=== PATIENT | male | born 1960 | race African-American/Black ===

== ENCOUNTER 2018-07-31 06:58 | Emergency (ER) | payer OTHER ==
[~2018-07-31] VITALS: Ht 170.2 cm; Wt 68.0 kg
[~2018-07-31 06:58] MED LIST: IBUPROFEN 600600 M1 PO
[2018-07-31 06:59] VITALS: BP 141/77
== END 2018-07-31 07:34 | disposition home or self-care (01) ==
LOC: ER 06:58
DX: J06.9 Acute upper respiratory infection, unspecified (principal); Z02.79 Encounter for issue of other medical certificate

== ENCOUNTER 2019-05-31 09:45 | Emergency (ER) | payer OTHER ==
[~2019-05-31] VITALS: Ht 170.2 cm; Wt 73.5 kg
[2019-05-31] MEDS ORDERED: ROBAXIN 750 MG750 MG PO (11:15)
[2019-05-31] MEDS ORDERED: NAPROSYN500 MG PO (11:15)
[2019-05-31 11:33] VITALS: BP 132/84
== END 2019-05-31 11:34 | disposition home or self-care (01) ==
LOC: ER 09:45
DX: S16.1XXA Strain of muscle, fascia and tendon at neck level, initial encounter (principal); S09.8XXA Other specified injuries of head, initial encounter; M54.5 Low back pain; F17.290 Nicotine dependence, other tobacco product, uncomplicated; V49.49XA Driver injured in collision with other motor vehicles in traffic accident, initial encounter; Y92.89 Other specified places as the place of occurrence of the external cause; Y93.89 Activity, other specified; Y99.8 Other external cause status

== ENCOUNTER 2019-06-14 16:27 | Emergency (ER) | payer OTHER ==
[~2019-06-14] VITALS: Ht 170.2 cm; Wt 72.6 kg
[~2019-06-14 16:27] MED LIST changes: +NAPROSYN500 MG PO; +ROBAXIN 750 MG750 MG PO
[2019-06-14] MEDS ORDERED: ZANAFLEX4 MG PO ×2 (17:30→17:32)
[2019-06-14] MEDS ORDERED: ULTRAM 50MG TAB50 MG PO (17:34)
[2019-06-14 17:40] VITALS: BP 176/95
== END 2019-06-14 17:47 | disposition home or self-care (01) ==
LOC: ER 16:27
DX: S16.1XXA Strain of muscle, fascia and tendon at neck level, initial encounter (principal); M54.5 Low back pain; V89.2XXA Person injured in unspecified motor-vehicle accident, traffic, initial encounter; Y92.89 Other specified places as the place of occurrence of the external cause; Y93.89 Activity, other specified; Y99.8 Other external cause status

== ENCOUNTER 2019-10-12 12:22 | Emergency (ER) | payer OTHER ==
[~2019-10-12] VITALS: Ht 170.2 cm; Wt 72.6 kg
[~2019-10-12 12:22] MED LIST changes: +ULTRAM 50MG TAB50 MG PO; +ZANAFLEX4 MG PO
[2019-10-12 13:04] LABS: HEMATOCRIT 37.6 % (42.0-52.0); HEMOGLOBIN 12.6 gm/dL (14.0-18.0); MCHC 33.6 g/dL (28.0-37.0); MCV 98.3 fL (80.0-100.0); PLATELET COUNT 176 thou/uL (150-400); RBC 3.82 mil/uL (4.50-6.00); RDW 13.5 % (10.5-14.5); WBC 4.2 thou/uL (4.0-11.0)
[2019-10-12 13:19] LABS: CREATININE 1.1 mg/dL (0.7-1.3); POTASSIUM 3.5 mmol/L (3.5-5.1)
[2019-10-12 13:25] LABS: ALBUMIN 3.7 g/dL (3.4-5.0); TOTAL BILIRUBIN 0.7 mg/dL (<0.1-1.0); TOTAL PROTEIN 8.7 g/dL (6.4-8.2); URIC ACID* 3.5 mg/dL (2.6-7.2)
[2019-10-12 13:36] LABS: ABSOLUTE NEUTROPHILS 3.1 thou/uL (1.4-8.2); ANISOCYTOSIS SLIGHT
[2019-10-12] MEDS ORDERED: PREDNISONE 10 M10 M1 PO ×2 (13:42→13:45)
[2019-10-12] MEDS ORDERED: NAPROSYN500 MG PO ×2 (13:42→13:45)
[2019-10-12] MEDS ORDERED: NORCO 5-325 TA1 EAC1 PO ×2 (13:42→13:45)
[2019-10-12 13:51] VITALS: BP 162/84
== END 2019-10-12 13:50 | disposition home or self-care (01) ==
LOC: ER 12:22
PROVIDERS: Physician Assistant
DX: M10.9 Gout, unspecified (principal); M25.562 Pain in left knee; I10 Essential (primary) hypertension

== ENCOUNTER 2020-07-24 07:44 | Emergency (ER) | payer OTHER ==
[~2020-07-24] VITALS: Ht 172.7 cm; Wt 77.1 kg
[~2020-07-24 07:44] MED LIST changes: +NORCO 5-325 TA1 EAC1 PO; +PREDNISONE 10 M10 M1 PO
[2020-07-24] MEDS ORDERED: NORVASC5 MG PO (08:21)
[2020-07-24 08:23] LABS: ABSOLUTE NEUTROPHILS 3.1 thou/uL (1.4-8.2); BASOPHILS 0.4 % (0.0-2.0); EOSINOPHILS 1.1 % (0.0-3.0); HEMATOCRIT 39.2 % (42.0-52.0); HEMOGLOBIN 13.6 gm/dL (14.0-18.0); LYMPHOCYTES 12.9 % (24.0-44.0); MCH 32.8 pg (26.0-34.0); MCHC 34.7 g/dL (28.0-37.0); MCV 94.4 fL (80.0-100.0); MONOCYTES 11.4 % (1.0-8.0); PLATELET COUNT 133 thou/uL (150-400); POLYS 74.2 % (36.0-66.0); RBC 4.15 mil/uL (4.50-6.00); RDW 14.5 % (10.5-14.5); WBC 4.2 thou/uL (4.0-11.0)
[2020-07-24 08:32] LABS: ANION GAP 15 mmol/L (7-16); BUN 11 mg/dL (7-18); CALCIUM 9.3 mg/dL (8.5-10.1); CHLORIDE 100 mmol/L (98-107); CO2 22 mmol/L (21-32); CREATININE 0.8 mg/dL (0.7-1.3); GLUCOSE 113 mg/dL (74-106); SODIUM 137 mmol/L (136-145)
[2020-07-24 08:38] LABS: POTASSIUM 4.6 mmol/L (3.5-5.1)
[2020-07-24 08:42] LABS: ALBUMIN 4.1 g/dL (3.4-5.0); MAGNESIUM 1.4 mg/dL (1.8-2.4); SGOT 106 U/L (15-37); SGPT 61 U/L (30-65); TOTAL PROTEIN 8.9 g/dL (6.4-8.2); TROPONIN-I <0.06 ng/mL (<0.06)
[2020-07-24 08:43] LABS: APTT 29.2 Seconds (24.5-32.8); PROTIME 10.7 Seconds (9.3-11.4)
[2020-07-24] MEDS ORDERED: PRILOSEC OTC20 MG PO (09:33)
[2020-07-24] MEDS ORDERED: VENTOLIN HFA 1818 GM INH (09:33)
[2020-07-24 11:49] VITALS: BP 146/86
--- NOTE | 2020-07-25 07:02 | EKG ---
[facility] [address] ELECTROCARDIOGRAM REPORT Name: FIDENCIO DE LA CRUZ Room #: [facility] [id number] Admission: 07/24/20 Attend Phys: Discharge: 07/24/20 Date of : 58 Report #: [id number] THIS REPORT FOR: cc: NEEMA - Etelvina family physician/PCP NEEMA - Etelvina family physician/PCP Maurizio Villalobos MD [facility] ~ THIS REPORT FOR: //name// [facility] ED Test Date: 2020-07-24 Test Time: 07:49:55 Pat Name: FIDENCIO DE LA CRUZ Department: Room: 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[employer]: : 1960 Requested By: Casey Infante Order Number: [id number] MD: Maurizio Villalobos Measurements Intervals [place] Rate: 88 P: 37 TX: 141 QRS: 63 QRSD: 98 T: 37 QT: 361 QTc: 437 Interpretive Statements Sinus rhythm Compared to ECG 10/11/1993 15:16:00 Sinus arrhythmia no longer present Early repolarization no longer present Electronically Signed On 07-25-2020 7:01:53 [employer] by Maurizio Villalobos [email or web address] <ELECTRONICALLY SIGNED> By: Maurizio Villalobos MD, FACC 07/25/20700 Maurizio Villalobos MD, [facility] /EPI
== END 2020-07-24 11:51 | disposition home or self-care (01) ==
LOC: ER 07:44
PROVIDERS: Emergency Medicine
DX: R07.89 Other chest pain (principal); R19.7 Diarrhea, unspecified; K21.9 Gastro-esophageal reflux disease without esophagitis; R06.00 Dyspnea, unspecified; E83.42 Hypomagnesemia; I10 Essential (primary) hypertension; M10.9 Gout, unspecified; F17.210 Nicotine dependence, cigarettes, uncomplicated; Z79.899 Other long term (current) drug therapy; Z20.828 Contact with and (suspected) exposure to other viral communicable diseases